=== PATIENT | male | born 2000 | race Caucasian/White ===

== ENCOUNTER 2021-07-23 07:40 | Emergency (ER) | payer MEDICAID ==
[~2021-07-23] VITALS: Ht 167.6 cm; Wt 81.0 kg
[2021-07-23] MEDS ORDERED: TETANUS, DIPHTHERIA, PERTUSSIS VAC/PF 0.5ML (>10YR OLD) IM ONE (08:15)
[2021-07-23] MEDS ORDERED: LIDOCAINE HCL/PF 1% 10 MG/ML 5ML VIAL INFIL ONE (08:15)
[2021-07-23] MEDS ORDERED: ONDANSETRON 4MG ODT PO ONE (08:15)
[2021-07-23] MEDS ORDERED: HYDROCODONE/ACETAMINOPHEN 5/325MG TABLET PO ONE (08:15)
[2021-07-23] MEDS ORDERED: BACITRACIN ZINC OINT UDPKT TOP ONE (08:15)
[2021-07-23] MEDS ORDERED: LIDOCAINE HCL 1% 10 MG/ML 10ML VIAL IJ NR (08:30)
[2021-07-23] MEDS ORDERED: HYDR-4001 MT (09:23)
[2021-07-23] MEDS ORDERED: IBUP-2030 MT (09:23)
[2021-07-23] MEDS ORDERED: CEPH500T MT (09:23)
[2021-07-23] MEDS ORDERED: CEPHALEXIN 250MG CAPSULE PO ONE (09:30)
[2021-07-23 09:50] VITALS: BP 102/70
== END 2021-07-23 10:15 | disposition home or self-care (01) ==
LOC: ER 07:40
DX: S61.412A Laceration without foreign body of left hand, initial encounter (principal); W26.9XXA Contact with unspecified sharp object(s), initial encounter; Y93.89 Activity, other specified; Y92.89 Other specified places as the place of occurrence of the external cause; Y99.8 Other external cause status
CPT/HCPCS: 12001; 73140; 90471; 90715; 99284; Q0162; J3490